=== PATIENT | male | born 1955 | race Caucasian/White ===

== ENCOUNTER 2019-07-13 05:38 | Inpatient (IN) ==
[2019-07-13] MEDS ORDERED: ALVIMOPAN 12 MG CAPSULE ONE (06:00)
[2019-07-13] MEDS ORDERED: SODIUM PHOSPHATE ENEMA 133 ML BOTTLE RECTAL ONE ×2 (06:00→06:37)
[2019-07-13] MEDS ORDERED: ACETAMINOPHEN 500 MG TABLET PO ONE (06:00)
[2019-07-13] MEDS ORDERED: DIAZEPAM 5 MG TABLET PO ONE (06:00)
[2019-07-13] MEDS ORDERED: FAMOTIDINE 20 MG TABLET PO ONE (06:00)
[2019-07-13] MEDS ORDERED: cefTRIAXone 1,000 MG VIAL ONE (06:00)
[2019-07-13] MEDS ORDERED: FAMOTIDINE 20 MG TABLET ONE (06:18)
[2019-07-13] MEDS ORDERED: DIAZEPAM 5 MG TABLET ONE (06:18)
[2019-07-13] MEDS ORDERED: ACETAMINOPHEN 500 MG TABLET ONE (06:18)
[2019-07-13] MEDS: LACTATED RINGERS 1,000 ML IV SCH (06:30)
[2019-07-13] MEDS ORDERED: ALVIMOPAN 12 MG CAPSULE PO ONE (06:30)
[2019-07-13] MEDS ORDERED: ceFAZolin 1,000 MG in SYRINGE 1 EACH IV ONE (06:30)
[2019-07-13] MEDS ORDERED: ONDANSETRON 4 MG/2 ML VIAL IV PRN (12:27)
[2019-07-13] MEDS ORDERED: HYDROmorphone PCA 30 MG/30 ML SYRINGE IV SCH (12:30)
[2019-07-13] MEDS ORDERED: SEVOFLURANE 1 UNIT/15 MINUTE INH ONE (12:51)
[2019-07-13] MEDS ORDERED: LIDOCAINE 2% 5 ML VIAL ONE (12:51)
[2019-07-13] MEDS ORDERED: PROPOFOL 200 MG/20 ML VIAL IV ONE (12:51)
[2019-07-13] MEDS ORDERED: MIDAZOLAM 2 MG/2 ML VIAL ONE (12:52)
[2019-07-13] MEDS ORDERED: ePHEDrine 50 MG/ML AMP ONE (12:52)
[2019-07-13] MEDS ORDERED: GLYCOPYRROLATE 0.4 MG/2 ML VIAL ONE (12:53)
[2019-07-13] MEDS ORDERED: ROCURONIUM 100 MG/10 ML VIAL IV ONE (12:53)
[2019-07-13] MEDS ORDERED: SUCCINYLCHOLINE 200 MG/10 ML VIAL ONE (12:53)
[2019-07-13] MEDS ORDERED: ONDANSETRON 4 MG/2 ML VIAL ONE (12:53)
[2019-07-13] MEDS ORDERED: NEOSTIGMINE 10 MG/10 ML VIAL ONE (12:53)
[2019-07-13] MEDS ORDERED: PHENYLEPHRINE 1 MG/10 ML SYRINGE IV ONE (12:53)
[2019-07-13] MEDS ORDERED: PHENYLEPHRINE 10 MG/1 ML VIAL IV ONE (12:53)
[2019-07-13] MEDS ORDERED: ACETAMINOPHEN 1,000 MG/100 ML VIAL IV ONE (12:53)
[2019-07-13] MEDS ORDERED: LACTATED RINGERS 2,000 ML IV ONE (12:53)
[2019-07-13] MEDS ORDERED: SODIUM CHLORIDE 0.9% 250 ML IV ONE (12:53)
[2019-07-13] MEDS ORDERED: SODIUM CHLORIDE 0.9% 100 ML IV ONE (12:53)
[2019-07-13 13:15] LABS: Apearance,Urine CLEAR (Clear); Bilirubin,Urine Negative (Negative); Blood, Urine Negative (Negative); Glucose,Urine (UA) Negative (Negative); Hyaline Casts,Urine 1 /LPF (0-3); Ketones,Urine Negative (Negative); Mucus,Urine Occasional /LPF (Occasional); Nitrite,Urine Negative (Negative); Protein,Urine Negative; RBC,Urine 3 /HPF (0-4); Urine Color Yellow (Yellow); Urine Specific Gravity 1.014 (1.001-1.035); Urine Urobilinogen < 2.0 EU/DL (0.2-1.0); WBC,Urine <1 /HPF (0-6)
[2019-07-13] MEDS: SODIUM CHLORIDE 0.9% 1,000 ML IV SCH (14:02)
[2019-07-13] MEDS: OXYBUTYNIN XL 10 MG TABLET PO SCH (17:16)
[2019-07-13] MEDS ORDERED: TEMAZEPAM 15 MG CAPSULE PO PRN (18:11)
[2019-07-13] MEDS: METOPROLOL SUCCINATE XL 25 MG TABLET PO SCH (22:05)
[2019-07-14] MEDS: SODIUM CHLORIDE 0.9% 1,000 ML IV SCH ×2 (00:06→08:35)
[2019-07-14 06:24] LABS: Basophils % 0.2 % (0.0-0.8); Eosinophils # 0.1 10*3/uL (0.0-0.87); Eosinophils % 1.5 % (0.00-10.9); Hemoglobin 10.8 GM/DL (14.0-18.0); Immature Granulocytes % 0.3 %; Immature Granulocytes Absolute 0.03 #; Lymphocytes # 2.2 10*3/uL (1.4-4.0); Lymphocytes % 24.8 % (21.2-54.2); Mean Corpuscular HGB Conc 32.7 GM/DL (32-36); Mean Corpuscular Volume 93.8 FL (87-102); Mean Platelet Volume 8.8 FL (9.6-12.0); Monocytes % 9.7 % (1.7-12.7); Neutrophils % 63.5 % (38.7-73.9); Platelet Count 180 T/CUMM (130-400); Red Blood Count 3.52 MC/CUMM (3.8-5.5); Red Cell Distribution Width 12.3 % (9.3-17.3)
[2019-07-14 06:53] LABS: Calcium 8.2 MG/DL (8.5-10.1); Osmolality,Calculated 278.3 MOS/KG (273-304)
[2019-07-14] MEDS: LACTATED RINGERS 1,000 ML IV SCH (08:32)
[2019-07-14] MEDS: METOPROLOL SUCCINATE XL 25 MG TABLET PO SCH ×2 (08:33→22:14)
[2019-07-14] MEDS: PANTOPRAZOLE 40 MG TABLET PO SCH (08:33)
[2019-07-14] MEDS: CETIRIZINE 10 MG TABLET PO SCH (08:33)
[2019-07-14] MEDS: ASCORBIC ACID 500 MG TABLET PO SCH (08:33)
[2019-07-14] MEDS: DOCUSATE/SENNA 50-8.6 MG TABLET PO SCH (08:33)
[2019-07-14] MEDS: OXYBUTYNIN XL 10 MG TABLET PO SCH (08:33)
[2019-07-14] MEDS ORDERED: oxyCODONE/ACETAMINOPHEN 5-325 MG TABLET PO PRN (09:11)
[2019-07-14] MEDS: oxyCODONE/ACETAMINOPHEN 5-325 MG TABLET PO PRN (12:13)
[2019-07-14] MEDS ORDERED: MAGNESIUM HYDROXIDE SUSP 30 ML UDCUP PO PRN (17:34)
[2019-07-15] MEDS: oxyCODONE/ACETAMINOPHEN 5-325 MG TABLET PO PRN (05:25)
[2019-07-15] MEDS: PANTOPRAZOLE 40 MG TABLET PO SCH (08:58)
[2019-07-15] MEDS: DOCUSATE/SENNA 50-8.6 MG TABLET PO SCH (08:59)
[2019-07-15] MEDS: CETIRIZINE 10 MG TABLET PO SCH (09:00)
[2019-07-15] MEDS: OXYBUTYNIN XL 10 MG TABLET PO SCH (09:00)
[2019-07-15] MEDS: ASCORBIC ACID 500 MG TABLET PO SCH (09:00)
[2019-07-15] MEDS: METOPROLOL SUCCINATE XL 25 MG TABLET PO SCH (09:04)
[2019-07-15] MEDS: LACTATED RINGERS 1,000 ML IV SCH (10:17)
[2019-07-15 10:37] VITALS: BP 100/82
[2019-07-15] MEDS ORDERED: METOPROLOL SUCCINATE XL 25 MG TABLET PO SCH (21:00)
== END 2019-07-15 10:38 | disposition home or self-care (01) | DRG 708 ==
LOC: N.PREADM 05:38 → N.SDSINP 05:38 → N.5E 14:01 → N.PREADM 07-15 10:57 → N.5E 07-15 11:36
PROVIDERS: ADMIT Urology; ATTEND Urology